=== PATIENT | female | born 1945 | race Caucasian/White ===

== ENCOUNTER → 2021-06-22 10:51 | Outpatient (CLI) | payer MEDICARE, SELFPAY | PROVIDERS: Visit Provider Ophthalmology | DX: Z20.822 Contact with and (suspected) exposure to COVID-19 (principal); Z01.812 Encounter for preprocedural laboratory examination | CPT/HCPCS: U0003 ==

== ENCOUNTER 2021-06-25 06:49 | Day surgery (SDC) | payer MEDICARE, SELFPAY ==
[2021-06-21 14:00] VITALS: BMI 24.7
--- NOTE | 2021-06-25 06:45 | SUR.PREOP ---
Spoke w/ Dr Obregon, obtained permission to administer Tetracaine drops.
[2021-06-25 07:15] VITALS: BP 186/70; PULSE 96; RESP 18; TEMP 36.7; O2SAT 99
[2021-06-25 08:14] VITALS: BP 171/73; PULSE 83; RESP 16; O2SAT 97
[2021-06-25 08:19] VITALS: BP 148/59; PULSE 78; RESP 16; O2SAT 100
[2021-06-25 08:24] VITALS: BP 139/63; PULSE 77; RESP 16; O2SAT 100
[2021-06-25 08:29] VITALS: BP 142/65; PULSE 73; RESP 16; O2SAT 100
[2021-06-25 08:33] VITALS: BP 157/92; PULSE 83; RESP 18; TEMP 36.6; O2SAT 95
== END 2021-06-25 08:45 | disposition home or self-care (01) ==
LOC: OR 06:58
PROVIDERS: PCP Family Medicine; Visit Provider Ophthalmology
DX: H25.813 Combined forms of age-related cataract, bilateral (principal); H52.10 Myopia, unspecified eye; H02.834 Dermatochalasis of left upper eyelid; H02.831 Dermatochalasis of right upper eyelid; H43.393 Other vitreous opacities, bilateral; M19.90 Unspecified osteoarthritis, unspecified site; Z88.1 Allergy status to other antibiotic agents; Z82.49 Family history of ischemic heart disease and other diseases of the circulatory system; Z79.899 Other long term (current) drug therapy
CPT/HCPCS: 66984; V2632

== ENCOUNTER → 2021-07-06 09:03 | Outpatient (CLI) | payer MEDICARE, SELFPAY | PROVIDERS: Visit Provider Ophthalmology | DX: Z01.812 Encounter for preprocedural laboratory examination (principal); Z20.822 Contact with and (suspected) exposure to COVID-19 | CPT/HCPCS: U0003 ==

== ENCOUNTER 2021-07-09 06:40 | Day surgery (SDC) | payer MEDICARE, SELFPAY ==
[2021-07-03 13:23] VITALS: BMI 24.6
[2021-07-09 06:56] VITALS: BP 188/74; PULSE 90; RESP 20; TEMP 36.4; O2SAT 97
[2021-07-09 08:10] VITALS: BP 202/98; PULSE 83; RESP 16; O2SAT 99
[2021-07-09 08:15] VITALS: BP 179/82; PULSE 81; RESP 16; O2SAT 99
[2021-07-09 08:20] VITALS: BP 169/83; PULSE 80; RESP 16; O2SAT 100
[2021-07-09 08:25] VITALS: BP 155/68; PULSE 82; RESP 16; O2SAT 100
[2021-07-09 08:26] VITALS: BP 155/73; PULSE 89; RESP 16; TEMP 36.1; O2SAT 96
== END 2021-07-09 08:39 | disposition home or self-care (01) ==
LOC: OR 06:43
PROVIDERS: PCP Family Medicine; Visit Provider Ophthalmology
DX: H25.813 Combined forms of age-related cataract, bilateral (principal); H52.10 Myopia, unspecified eye; H02.831 Dermatochalasis of right upper eyelid; H02.834 Dermatochalasis of left upper eyelid; H43.393 Other vitreous opacities, bilateral; M19.90 Unspecified osteoarthritis, unspecified site; Z88.1 Allergy status to other antibiotic agents; Z87.891 Personal history of nicotine dependence
CPT/HCPCS: 66984; V2632